=== PATIENT | male | born 1990 | race Caucasian/White ===

== ENCOUNTER 2020-05-25 23:15 | Emergency (ER) | payer SELFPAY ==
[~2020-05-25] VITALS: Ht 190.5 cm; Wt 170.1 kg
[2020-05-26] MEDS ORDERED: AMOXICILLIN500 M2 PO (00:42)
== END 2020-05-26 00:42 | disposition home or self-care (01) ==
LOC: ED 23:15
DX: K08.89 Other specified disorders of teeth and supporting structures (principal); K01.1 Impacted teeth

== ENCOUNTER 2021-06-20 19:52 | Emergency (ER) | payer SELFPAY ==
[~2021-06-20] VITALS: Ht 190.5 cm; Wt 181.4 kg
[~2021-06-20 19:52] MED LIST: AMOXICILLIN500 M2 PO
[2021-06-20 20:43] LABS: HEMATOCRIT 46.4 % (42.0-52.0); MEAN CELL VOLUME 80.3 fl (80.0-94.0); MEAN CORPUSCULAR HGB 27.3 pg (27.0-31.0); MEAN CORPUSCULAR HGB CONC 34.1 g/dl (33.0-37.0); PLATELET COUNT AUTOMATED 331 10*3/uL (130-400); RED BLOOD COUNT 5.78 10*6/uL (4.50-5.90); RED CELL DISTRI WIDTH 12.2 % (0-14.5); WHITE BLOOD COUNT 16.2 10*3/uL (4.8-10.8)
[2021-06-20 21:03] LABS: BUN 10 mg/dl (7-24); CHLORIDE 105 mmol/L (98-107); CREATININE 0.72 mg/dL (0.70-1.30); SODIUM 139 mmol/L (136-145)
[2021-06-20 21:10] LABS: ATYPICAL LYMPHS 14 % (0-0); PLATELET SUFFICIENCY NORMAL (NORMAL); TOTAL CELLS COUNTED 100 #CELLS
[2021-06-20 21:11] LABS: MICROCYTOSIS SLIGHT
[2021-06-20] MEDS ORDERED: PREDNISONE20 M1 PO (21:30)
== END 2021-06-20 21:51 | disposition home or self-care (01) ==
LOC: ED 19:52
PROVIDERS: Internal Medicine
DX: B34.9 Viral infection, unspecified (principal); Z20.822 Contact with and (suspected) exposure to COVID-19; D72.829 Elevated white blood cell count, unspecified; B27.90 Infectious mononucleosis, unspecified without complication

== ENCOUNTER 2021-07-21 04:34 | Emergency (ER) | payer SELFPAY ==
[~2021-07-21] VITALS: Ht 190.5 cm; Wt 181.4 kg
[~2021-07-21 04:34] MED LIST changes: +PREDNISONE20 M1 PO
== END 2021-07-21 05:30 | disposition home or self-care (01) ==
LOC: ED 04:34
DX: H61.21 Impacted cerumen, right ear (principal); H65.23 Chronic serous otitis media, bilateral

== ENCOUNTER 2023-02-09 06:40 | Emergency (ER) | payer SELFPAY ==
[~2023-02-09] VITALS: Ht 187.9 cm; Wt 183.7 kg
[2023-02-09] MEDS ORDERED: POLYTRIM 1000010 ML OPH (08:10)
== END 2023-02-09 08:24 | disposition home or self-care (01) ==
LOC: ED 06:40
DX: S05.01XA Injury of conjunctiva and corneal abrasion without foreign body, right eye, initial encounter (principal); X58.XXXA Exposure to other specified factors, initial encounter; Y93.89 Activity, other specified; Y92.009 Unspecified place in unspecified non-institutional (private) residence as the place of occurrence of the external cause; Y99.8 Other external cause status

== ENCOUNTER 2023-07-18 21:22 | Emergency (ER) | payer SELFPAY ==
[~2023-07-18] VITALS: Ht 190.5 cm; Wt 186.0 kg
[~2023-07-18 21:22] MED LIST changes: +POLYTRIM 1000010 ML OPH
[2023-07-18] MEDS ORDERED: ZITHROMAX250 MG PO (21:50)
== END 2023-07-18 22:15 | disposition home or self-care (01) ==
LOC: ED 21:22
DX: J32.9 Chronic sinusitis, unspecified (principal); I10 Essential (primary) hypertension; F17.210 Nicotine dependence, cigarettes, uncomplicated

== ENCOUNTER 2024-05-23 21:45 | Emergency (ER) | payer SELFPAY ==
[~2024-05-23] VITALS: Ht 190.5 cm; Wt 190.5 kg
[~2024-05-23 21:45] MED LIST changes: +ZITHROMAX250 MG PO
[2024-05-23 22:34] LABS: BASO # 0.1 10*3/uL (0.0-0.1); BASO % 0.4 % (0.0-1.0); EOS # 0.2 10*3/uL (0.0-0.4); HEMATOCRIT 43.8 % (42.0-52.0); MEAN CELL VOLUME 82.2 fl (80.0-94.0); MEAN CORPUSCULAR HGB 27.6 pg (27.0-31.0); MEAN CORPUSCULAR HGB CONC 33.6 g/dl (33.0-37.0); MEAN PLATELET VOLUME 10.4 fl (9.6-12.3); MONO # 0.6 10*3/uL (0.1-1.0); MONO % 4.4 % (3.0-9.0); NEUT # 9.9 10*3/uL (2.3-7.9); NEUT % 68.9 % (47.0-73.0); PLATELET COUNT AUTOMATED 257 10*3/uL (130-400); RED BLOOD COUNT 5.33 10*6/uL (4.50-5.90); RED CELL DISTRI WIDTH 12.3 % (0-14.5); WHITE BLOOD COUNT 14.4 10*3/uL (4.8-10.8)
[2024-05-23 23:07] LABS: BUN 9 mg/dl (9-23); CHLORIDE 103 mmol/L (98-107); POTASSIUM 3.6 mmol/L (3.4-5.1)
[2024-05-23] MEDS ORDERED: ZESTRIL10 MG PO (23:30)
[2024-05-23] MEDS ORDERED: LISINOPRIL 10 MG TAB PO ONE (23:35)
== END 2024-05-23 23:48 | disposition home or self-care (01) ==
LOC: ED
PROVIDERS: Nurse Practitioner Family
DX: I10 Essential (primary) hypertension (principal); I49.3 Ventricular premature depolarization